=== PATIENT | female | born 1950 | race Caucasian/White ===

== ENCOUNTER → 2024-12-09 | Outpatient (CLI) | payer OTHER ==
[2024-12-09 15:46] LABS: BASOPHILS ABSOLUTE AUTO 0.05 K/mm3 (0.00-0.23); BASOPHILS PERCENT AUTO 1 % (0-2); EOSINOPHILS ABSOLUTE AUTO 0.14 K/mm3 (0.00-0.68); EOSINOPHILS PERCENT AUTO 2 % (0-6); Hematocrit 44.3 % (33.0-51.0); Hemoglobin 15.2 g/dL (11.5-16.0); IMMATURE GRAN ABSOLUTE AUTO 0.01 K/mm3 (0.00-0.10); IMMATURE GRAN PERCENT AUTO 0 % (0-1); LYMPHOCYTES ABSOLUTE AUTO 1.68 K/mm3 (0.84-5.20); LYMPHOCYTES PERCENT AUTO 24 % (21-46); MONOCYTES ABSOLUTE AUTO 0.42 K/mm3 (0.16-1.47); MONOCYTES PERCENT AUTO 6 % (4-13); Mean Corpuscular HGB 32.9 pg (26.0-34.0); Mean Corpuscular HGB Conc 34.3 g/dL (31.5-36.5); Mean Corpuscular Volume 96 fL (80-100); Mean Platelet Volume 10.1 fL (9.1-12.4); NEUTROPHILS ABSOLUTE AUTO 4.58 K/mm3 (1.96-9.15); NEUTROPHILS PERCENT AUTO 67 % (41-73); Platelet Count 244 K/mm3 (150-400); RDW Coefficient Variation 12.3 % (11.7-14.2); RDW Standard Deviation 43.2 fL (35.1-46.3); Red Blood Cell Count 4.62 M/mm3 (3.80-5.20); White Blood Cell Count 6.88 K/mm3 (4.00-11.30)
[2024-12-09 16:00] LABS: Very Low Density Lipoprot Chol 14 mg/dL (6-32)
[2024-12-09 16:09] LABS: Alanine Aminotransfer (ALT/SGP 48 U/L (12-78); Albumin, Blood 3.6 g/dL (3.4-5.0); Alk Phos 67 U/L (50-136); Anion Gap 10 mmol/L (3-11); Aspartate Aminotrans (AST/SGOT 32 U/L (12-37); Bilirubin, Total 1.8 mg/dL (0.1-1.0); Blood Urea Nitrogen 16 mg/dL (8-24); Bun/Creatinine Ratio 20.1 (12.0-20.0); CO2, Blood 24 mmol/L (21-32); Calcium, Blood 9.4 mg/dL (8.5-10.1); Chloride, Blood 110 mmol/L (98-108); Cholesterol 131 mg/dL (50-200); Globulin, Blood 3.6 g/dL (2.2-4.0); Glomerular Filtration Rate 78 (60-); Glucose, Blood 115 mg/dL (70-99); HDL Cholesterol 67 mg/dL (>39); LDL/HDL RATIO 0.7; Low Density Lipoprotein Chol 50 mg/dL (0-110); Potassium, Blood 4.2 mmol/L (3.5-5.5); Sodium, Blood 140 mmol/L (136-145); Total Protein, Blood 7.2 g/dL (6.4-8.2); Triglycerides 71 mg/dL (30-160)
== END ==
LOC: LAB 14:41 → LAB SHORT 14:41
PROVIDERS: Physician Assistant
DX: Z51.81 Encounter for therapeutic drug level monitoring (principal); Z79.899 Other long term (current) drug therapy
CPT/HCPCS: 80053; 80061; 82306; 83036; 84443; 85025

== ENCOUNTER → 2024-12-21 | Outpatient (CLI) | payer OTHER ==
[2024-12-21 20:48] LABS: Bilirubin, Direct 0.3 mg/dL (0.0-0.3); Bilirubin, Indirect 0.8 mg/dL (0.1-0.7); Bilirubin, Total 1.1 mg/dL (0.1-1.0)
== END ==
LOC: LAB 17:48 → LAB SHORT 17:48
PROVIDERS: Physician Assistant
DX: R17 Unspecified jaundice (principal)
CPT/HCPCS: 82247; 82248